=== PATIENT | female | born 1975 | race Caucasian/White ===

== ENCOUNTER 2017-01-05 15:01 | Emergency (ER) | payer OTHER ==
[~2017-01-05] VITALS: Ht 175.3 cm; Wt 97.6 kg
[2017-01-05 18:20] VITALS: BP 130/85
== END 2017-01-05 18:22 | disposition home or self-care (01) ==
LOC: EME 15:01
DX: S09.90XA Unspecified injury of head, initial encounter (principal); W18.2XXA Fall in (into) shower or empty bathtub, initial encounter; Z87.891 Personal history of nicotine dependence
CPT/HCPCS: 70450; 99281; 99284